=== PATIENT | female | born 1995 ===

== ENCOUNTER → 2020-09-03 | Outpatient (CLI) | payer BC ==
[2020-09-08 15:10] LABS: HPV 16 Negative (Negative); HPV 18 Negative (Negative); HPV OTHER HR TYPES Negative (Negative)
== END | disposition home or self-care (01) ==
LOC: LAB 12:32
PROVIDERS: Hospitalist
DX: Z12.4 Encounter for screening for malignant neoplasm of cervix (principal)
CPT/HCPCS: 87624; G0145

== ENCOUNTER → 2021-11-24 | Outpatient (CLI) | payer BC ==
[2021-11-25 08:11] LABS: HIV AB/P24 AG SCREEN Non Reactive (Non Reactive)
[2021-11-26 01:07] LABS: CHLAMYDIA TRACHOMATIS, NAA Negative (Negative)
== END | disposition home or self-care (01) ==
LOC: LAB SHORT 16:55
PROVIDERS: Hospitalist
DX: Z11.3 Encounter for screening for infections with a predominantly sexual mode of transmission (principal); Z12.4 Encounter for screening for malignant neoplasm of cervix
CPT/HCPCS: 86803; 87389; 87491; 87591